=== PATIENT | female | born 1950 | race Caucasian/White ===

== ENCOUNTER 2017-12-15 09:37 | Outpatient (CLI) | payer MEDICARE, BC | END 2017-12-15 09:38 | disposition home or self-care (01) | LOC: BICMAMMO 09:37 | PROVIDERS: ATTEND Internal Medicine Hematology & Oncology | DX: Z12.31 Encounter for screening mammogram for malignant neoplasm of breast (principal); Z85.3 Personal history of malignant neoplasm of breast | CPT/HCPCS: 77063; 77067 ==

== ENCOUNTER 2018-04-07 09:24 | Outpatient (CLI) | payer MEDICARE, BC ==
--- NOTE | 2018-04-07 13:36 | BD ---
DEXA BONE DENSITY STUDY: HISTORY: A 67-year-old female with a history of osteopenia. Other specified disorders of bone density and str ucture. Menopausal patient. LUMBAR SPINE BMD (g/cm2) T-SCORE L1 1.025 +0.3 L2 1.029 0.0 L3 1.044 -0.4 L4 1.033 -0.3 TOTAL 1.033 -0.1 Within normal limits with no increased risk for fracture. Bone mineral density has increased 6.2% fr om the prior 02/23/2014 study. LEFT FEMUR FEMORAL NECK T-SCORE NECK 0.664 -1.7 TOTAL 0.883 -0.5 Evidence for osteopenia with increased risk for fracture. Bone mineral density has increased 9.3% fr om 02/23/2014. FRAX score for major osteoporotic fracture is 9.4% and hip fracture is 1.3%. POS: DONA
== END 2018-04-07 09:25 | disposition home or self-care (01) ==
LOC: BICMAMMO 09:24
PROVIDERS: ATTEND Family Medicine
DX: M85.80 Other specified disorders of bone density and structure, unspecified site (principal)
CPT/HCPCS: 77080

== ENCOUNTER 2019-01-07 08:48 | Outpatient (CLI) | payer MEDICARE, BC ==
--- NOTE | 2019-01-07 10:36 | MMO ---
Bilateral MAMMO Bilat Screen [facility]. CLINICAL HISTORY: Patient is 68 years old and is seen for screening. The patient has no family history of breast cancer. The patient has a history of malignant (generic) in the left breast in 2012. The patient has a history of left Lumpectomy in 2012 - malignant. VIEWS: The views performed were: bilateral craniocaudal with tomosynthesis and bilateral mediolateral oblique with tomosynthesis. FILMS COMPARED: The present examination has been compared to a prior imaging study performed at [facility] on 12/15/2017. MAMMOGRAM FINDINGS: There are scattered fibroglandular densities. Finding 1: There is a new equal density, irregular mass measuring 10 millimeters with spiculated margins seen in the middle region of the left breast at 10 o'clock. Finding 2: There is a stable area of skin thickening, a stable area of architectural distortion and a stable post-surgical scar seen in the left breast. Finding 3: There are calcifications seen in both breasts. IMPRESSION: FINDING 1: NEW MASS IN THE LEFT BREAST REQUIRES ADDITIONAL EVALUATION. AN ULTRASOUND EXAM IS RECOMMENDED. ADDITIONAL IMAGING. FINDING 2: STABLE AREA OF SKIN THICKENING, AREA OF ARCHITECTURAL DISTORTION AND POST-SURGICAL SCAR IN THE LEFT BREAST ARE BENIGN. FINDING 3: CALCIFICATIONS IN BOTH BREASTS ARE BENIGN. THE RESULTS OF THIS EXAM WERE SENT TO THE PATIENT. ACR BI-RADS Category 0 - Incomplete: Need additional imaging evaluation. [facility] will notify the patient of the need for additional imaging services. MAMMOGRAPHY NOTE: 1. A negative mammogram report should not delay a biopsy if a dominant of clinically suspicious mass is present. 2. Approximately 10% to 15% of breast cancers are not detected by mammography. 3. Adenosis and dense breasts may obscure an underlying neoplasm. Reported by: CATALINO ORR MD Electonically Signed: [id number]
== END 2019-01-07 08:49 | disposition home or self-care (01) ==
LOC: BICMAMMO 08:48
PROVIDERS: ATTEND Family Medicine
DX: Z12.31 Encounter for screening mammogram for malignant neoplasm of breast (principal); N63.20 Unspecified lump in the left breast, unspecified quadrant; Z85.3 Personal history of malignant neoplasm of breast
CPT/HCPCS: 77063; 77067

== ENCOUNTER 2019-01-13 09:48 | Outpatient (CLI) | payer MEDICARE, BC ==
--- NOTE | 2019-01-13 10:34 | MMO ---
Left Breast MAMMO Unilat Diag [facility]DI LT+MAUREEN. CLINICAL HISTORY: Patient is 68 years old and is seen for additional evaluation requested from prior study. The patient has no family history of breast cancer. The patient has a history of malignant (generic) in the left breast in 2012. The patient has a history of left Lumpectomy in 2012 - malignant. VIEWS: The views performed were: left craniocaudal spot compression with tomosynthesis; left mediolateral oblique spot compression with tomosynthesis; and left mediolateral with tomosynthesis. FILMS COMPARED: The present examination has been compared to prior imaging studies performed at [facility] on 12/15/2017, 01/07/2019 and 01/13/2019. MAMMOGRAM FINDINGS: There are scattered fibroglandular densities. There is a round mass measuring 9 millimeters with spiculated margins seen in the left breast at 11 o'clock. Ultrasound of this region demonstrates a hypoechoic mass. IMPRESSION: MASS IN THE LEFT BREAST IS SUSPICIOUS. AN ULTRASOUND-GUIDED BREAST BIOPSY IS RECOMMENDED. RESULTS AND RECOMMENDATIONS DISCUSSED WITH THE PATIENT AND QUESTIONS ANSWERED. THE RESULTS OF THIS EXAM WERE SENT TO THE PATIENT. ACR BI-RADS Category 4 - Suspicious abnormality - biopsy should be considered MAMMOGRAPHY NOTE: 1. A negative mammogram report should not delay a biopsy if a dominant of clinically suspicious mass is present. 2. Approximately 10% to 15% of breast cancers are not detected by mammography. 3. Adenosis and dense breasts may obscure an underlying neoplasm. Reported by: SIMIN ANN MD Electonically Signed: [id number]
--- NOTE | 2019-01-13 11:58 | ULT ---
LIMITED LEFT BREAST ULTRASOUND: Date: 01/13/19 PROVIDED CLINICAL HISTORY: Abnormal mammogram. FINDINGS: Limited sonographic interrogation of the left breast was performed at the 11 o'clock position in the region of mammographic concern. There is a round hypoechoic mass with posterior shadowing at the 11 o 'clock position of the left breast measuring about 6.0 mm maximally. IMPRESSION: BI-RADS Category 4 - Suspicious abnormality. Ultrasound guided biopsy is recommended. Results and recommendations discussed with the patient, and questions answered. CODE CR. POS: OFF
== END 2019-01-13 09:49 | disposition home or self-care (01) ==
LOC: BICMAMMO 09:48
PROVIDERS: ATTEND Internal Medicine Hematology & Oncology
DX: N63.22 Unspecified lump in the left breast, upper inner quadrant (principal); Z85.3 Personal history of malignant neoplasm of breast
CPT/HCPCS: 76642; 77065; G0279

== ENCOUNTER → 2019-01-25 | Day surgery (SDC) | payer MEDICARE, BC ==
--- NOTE | 2019-01-25 13:49 | MMO ---
Left Breast MAMMO Unilat Diag [facility]DI LT. CLINICAL HISTORY: Patient is 68 years old and is seen for diagnostic exam. The patient has no family history of breast cancer. The patient has a history of malignant (generic) in the left breast in 2012. The patient has a history of left Lumpectomy in 2012 - malignant. VIEWS: The views performed were: left craniocaudal and left mediolateral oblique. FILMS COMPARED: The present examination has been compared to prior imaging studies performed at [facility] on 12/15/2017, 01/07/2019 and 01/13/2019. MAMMOGRAM FINDINGS: There are scattered fibroglandular densities. There is a biopsy clip seen in the left breast at 12 o'clock. IMPRESSION: BIOPSY CLIP IN THE LEFT BREAST IS CONFIRMED UTILIZING POST PROCEDURE MAMMOGRAM. THE RESULTS OF THIS EXAM WERE SENT TO THE PATIENT. MAMMOGRAPHY NOTE: 1. A negative mammogram report should not delay a biopsy if a dominant of clinically suspicious mass is present. 2. Approximately 10% to 15% of breast cancers are not detected by mammography. 3. Adenosis and dense breasts may obscure an underlying neoplasm. Reported by: LONDON WARREN MD Electonically Signed: [id number]
--- NOTE | 2019-01-25 15:24 | ULT ---
PRE-PROCEDURE DIAGNOSIS: Left breast mass. POST-PROCEDURE DIAGNOSIS: Left breast mass. PROCEDURE: Ultrasound guided left breast mass biopsy. ANESTHESIA: Buffered 1% Lidocaine 10 mL. SPECIMEN: Six 14 gauge core biopsy specimens of left breast mass. TECHNIQUE: Prior to the procedure, the risks and benefits of an ultrasound-guided left breast mass biopsy were e xplained to the patient, and she consented fully to the procedure. The mass at the 11 o'clock position of the breast was identified. The breast was then prepped and dr aped in the usual sterile fashion. Lidocaine was used to anesthetize the skin and soft tissues surrounding the mass. An approach from ateral was performed. A small skin incision was made, allowing for passage of the biopsy device. Th is device was then placed six separate times through the skin, and six biopsy specimens were obtained of the mass. These were placed in formalin. At the completion of the procedure, a biopsy clip was placed adjacent to the mass. Pressure was held to maintain hemostasis. A post procedure mammogram was performed, showing the biopsy clip at the upper aspect of the left parisa ast, in the region where the previously seen mass was seen. The mass could not be easily identified without tomosynthesis on the current mammogram. IMPRESSION: Status post left breast mass biopsy. POS: DONA
== END ==
LOC: BICULT 12:52
PROVIDERS: ATTEND Internal Medicine Hematology & Oncology
DX: N60.32 Fibrosclerosis of left breast (principal)
CPT/HCPCS: 19083; 88305; 88313; 88341; 88342

== ENCOUNTER 2020-01-10 09:14 | Outpatient (CLI) | payer MEDICARE, BC ==
--- NOTE | 2020-01-10 10:46 | MMO ---
Bilateral MAMMO Bilat Screen [facility]. CLINICAL HISTORY: Patient is 69 years old and is seen for diagnostic exam. The patient has no family history of breast cancer. The patient has a history of malignant (generic) in the left breast in 2012. The patient has a history of left Lumpectomy in 2012 - malignant. VIEWS: The views performed were: bilateral craniocaudal with tomosynthesis and bilateral mediolateral oblique with tomosynthesis. FILMS COMPARED: The present examination has been compared to prior imaging studies performed at [facility] on 01/07/2019, 01/13/2019 and 01/25/2019. This study has been interpreted with the assistance of computer-aided detection. MAMMOGRAM FINDINGS: There are scattered fibroglandular densities. Finding 1: There is a post-surgical scar seen in the left breast. Left biopsy clip. Finding 2: There are benign appearing calcifications seen in both breasts. There are no suspicious masses, suspicious calcifications, or new areas of architectural distortion. IMPRESSION: THERE IS NO MAMMOGRAPHIC EVIDENCE OF MALIGNANCY. A ROUTINE FOLLOW-UP MAMMOGRAM IN 1 YEAR IS RECOMMENDED. THE RESULTS OF THIS EXAM WERE SENT TO THE PATIENT. ACR BI-RADS Category 2 - Benign finding MAMMOGRAPHY NOTE: 1. A negative mammogram report should not delay a biopsy if a dominant of clinically suspicious mass is present. 2. Approximately 10% to 15% of breast cancers are not detected by mammography. 3. Adenosis and dense breasts may obscure an underlying neoplasm. Reported by: ARASH MORROW MD Electonically Signed: [id number]
== END 2020-01-10 09:15 | disposition home or self-care (01) ==
LOC: BICMAMMO 09:14
PROVIDERS: ATTEND Internal Medicine Hematology & Oncology
DX: Z12.31 Encounter for screening mammogram for malignant neoplasm of breast (principal); Z85.3 Personal history of malignant neoplasm of breast; Z98.890 Other specified postprocedural states
CPT/HCPCS: 77063; 77067

== ENCOUNTER 2022-01-11 09:31 | Outpatient (CLI) | payer MEDICARE, BC | END 2022-01-11 09:32 | disposition home or self-care (01) | LOC: BICMAMMO 09:31 | PROVIDERS: ATTEND Internal Medicine Hematology & Oncology | DX: Z12.31 Encounter for screening mammogram for malignant neoplasm of breast (principal); N64.89 Other specified disorders of breast; Z85.3 Personal history of malignant neoplasm of breast; Z98.890 Other specified postprocedural states | CPT/HCPCS: 77063; 77067 ==

== ENCOUNTER 2023-02-19 08:46 | Outpatient (CLI) | payer MEDICARE, BC | END 2023-02-19 08:47 | disposition home or self-care (01) | LOC: BICMAMMO 08:46 | PROVIDERS: ATTEND Internal Medicine Hematology & Oncology | DX: Z12.31 Encounter for screening mammogram for malignant neoplasm of breast (principal); Z85.3 Personal history of malignant neoplasm of breast; Z91.89 Other specified personal risk factors, not elsewhere classified; Z98.890 Other specified postprocedural states | CPT/HCPCS: 77063; 77067 ==

== ENCOUNTER 2024-04-14 08:59 | Outpatient (CLI) | payer MEDICARE, BC | END 2024-04-14 09:00 | disposition home or self-care (01) | LOC: BICMAMMO 08:59 | PROVIDERS: ATTEND Internal Medicine | DX: M85.851 Other specified disorders of bone density and structure, right thigh (principal); M81.0 Age-related osteoporosis without current pathological fracture | CPT/HCPCS: 77080 ==

== ENCOUNTER 2025-02-23 09:21 | Outpatient (CLI) | payer MEDICARE, BC | END 2025-02-23 09:22 | disposition home or self-care (01) | LOC: BICMAMMO 09:21 | PROVIDERS: ATTEND Internal Medicine Hematology & Oncology | DX: Z12.31 Encounter for screening mammogram for malignant neoplasm of breast (principal); Z85.3 Personal history of malignant neoplasm of breast; Z91.89 Other specified personal risk factors, not elsewhere classified; Z98.890 Other specified postprocedural states | CPT/HCPCS: 77063; 77067 ==